=== PATIENT | male | born 1985 | race American Indian/Alaskan Native ===

== ENCOUNTER 2018-09-02 03:36 | Emergency (ER) | payer SELFPAY ==
[2018-09-02 03:47] VITALS: BMI 24.6
--- NOTE | 2018-09-02 04:14 | ED PDOC ---
Arrival/HPI - General Chief Complaint: Psychiatric Evaluation Time Seen by Provider: 09/02/18 03:38 Historian: Patient - History of Present Illness Narrative History of Present Illness (Text): 09/02/18 03:57 A 32 year old male with no significant past medical history presents to the emergency room brought in by ambulance for suicidal and homicide ideation after patient was apparently found outdoors possibly under the influence of drugs and alcohol stating he wanted to kill himself and kill someone else prior to arrival. Patient has an apparent past psychiatric illness as per collateral information obtained. No other medical or psychiatric history at this time. Patient on arrival extremely uncooperative and verbally abusive to the staff. ROS is limited due to patient being uncooperative. Time/Duration: Prior to Arrival Symptom Onset: Gradual Symptom Course: Unchanged Activities at Onset: Light Context: Street Past Medical History - Provider Review Nursing Documentation Reviewed: Yes - Cardiac Hx Cardiac Disorders: Yes Hx Hypertension: Yes - Psychiatric Hx Substance Use: No Family/Social History - Physician Review Nursing Documentation Reviewed: Yes Family/Social History: No Known Family HX Smoking Status: Current Some Days Smoker Hx Alcohol Use: Yes Hx Substance Use: No Allergies/Home Meds Allergies/Adverse Reactions: Allergies No Known Allergies Allergy (Unverified 09/02/18 03:52) Review of Systems - Review of Systems Systems not reviewed;Unavailable: Uncooperative Physical Exam Vital Signs Reviewed: Yes Temperature: Afebrile Blood Pressure: Normal Pulse: Tachycardic Respiratory Rate: Normal Mental Status: Positive for: Alert and Oriented X 3 - Systems Exam Head: Present: Atraumatic, Normocephalic Pupils: Present: PERRL Extroacular Muscles: Present: EOMI Conjunctiva: Present: Normal Respiratory/Chest: Present: Clear to Auscultation, Good Air Exchange. No: Respiratory Distress, Accessory Muscle Use Cardiovascular: Present: Regular Rate and Rhythm, Normal S1, S2. No: Murmurs Psychiatric: Present: Alert, Oriented x 3, Agitated Medical Decision Making ED Course and Treatment: 09/02/18 03:57 Impression: 32 year old male presenting to the emergency room for suicidal and homicidal ideation. Plan: -- EKG -- Labs -- CBC -- Chest X-ray -- Ativan -- Haldol -- Reassess and disposition Progress Notes: 09/02/18 04:10 Patient at one point became increasingly abusive and uncooperative. [employer] was notified and came to ER. Patient was restrained and sedated for his own protection. 09/02/18 05:04 EKG: Ordered, reviewed, and independently interpreted the EKG. Rate : 79 BPM Rhythm : NSR Interpretation : Normal ekg. 09/02/18 05:13 Chest X-ray reviewed by me, shows no acute process. 09/02/18 07:00 Case endorsed to /pending PES evaluation/reassess/final disposition - RAD Interpretation Radiology Orders: 09/02/18 04:00 CHEST PORTABLE [RAD] Stat - Medication Orders Current Medication Orders: Discontinued Medications Haloperidol Lactate (Haldol) 5 mg IM STAT STA; Protocol Stop: 09/02/18 03:54 Lorazepam (Ativan) 2 mg IM ONCE ONE Stop: 09/02/18 03:54 - Scribe Statement The provider has reviewed the documentation as recorded by the Alverto Strange All medical record entries made by the Scribe were at my direction and personally dictated by me. I have reviewed the chart and agree that the record accurately reflects my personal performance of the history, physical exam, medical decision making, and the department course for this patient. I have also personally directed, reviewed, and agree with the discharge instructions and disposition.\ Disposition/Present on Arrival - Present on Arrival Any Indicators Present on Arrival: No History of DVT/PE: No History of Uncontrolled Diabetes: No Urinary Catheter: No History of Decub. Ulcer: No History Surgical Site Infection Following: None - Disposition Have Diagnosis and Disposition been Completed?: No Diagnosis: Psychosis Disposition Time: 07:00 Condition: STABLE Forms: [employer] (Thai)
[2018-09-02 04:54] LABS: ALB/GLOB RATIO 1.3 (1.1-1.8); ALBUMIN 4.5 g/dL (3.0-4.8); ALT/SGPT 22 U/L (7-56); AST/SGOT 51 U/L (17-59); BLOOD UREA NITROGEN 17 mg/dL (7-21); CALCIUM 9.2 mg/dL (8.4-10.5); GFR NON-AFRICAN AMERICAN > 60
[2018-09-02 04:58] LABS: HEMOGLOBIN 13.6 g/dL (14.0-18.0); MEAN CELL VOLUME 83.1 fl (80.0-105.0); MEAN CORPUSCULAR HEMOGLOBIN 28.1 pg (25.0-35.0); MEAN CORPUSCULAR HGB CONC 33.8 g/dl (31.0-37.0); MEAN PLATELET VOLUME 10.1 fl (7.0-11.0); RBC 4.84 10^6/uL (3.5-6.1); RED CELL DISTRIBUTION WIDTH 14.2 % (11.5-14.5)
[2018-09-02 05:04] LABS: OPIATES, UR NEGATIVE (NEGATIVE)
[2018-09-02 06:17] LABS: BARBITURATES, UR NEGATIVE (NEGATIVE); BENZODIAZEPINES, UR NEGATIVE (NEGATIVE); PHENCYCLIDINE, UR POSITIVE (NEGATIVE)
--- NOTE | 2018-09-02 07:14 | ED PDOC ---
Physical Exam Vital Signs Reviewed: Yes Vital Signs Temp Pulse Resp BP Pulse Ox 09/02/18 06:00 98 F 90 18 138/80 96 09/02/18 04:15 97.8 F 98 H 18 142/86 100 Temperature: Afebrile Blood Pressure: Normal Pulse: Regular Respiratory Rate: Normal Appearance: Positive for: Well-Appearing, Non-Toxic, Comfortable Pain Distress: None Mental Status: Positive for: Alert and Oriented X 3 Medical Decision Making ED Course and Treatment: 09/02/18 07:13: Case endorsed to me by Dr. Patton. Pending PES evaluation, reassessment, and final disposition. 09/02/18 09:31: Patient is medically cleared. PES evaluated. Pending [facility] [place]. 09/02/18 17:16 pending [facility] [place] sleeping in nad. intermittanly agitated. - Lab Interpretations Lab Results: Total Bilirubin 0.7 mg/dL (0.2-1.3) 09/02/18 04:26 AST 51 U/L (17-59) 09/02/18 04:26 ALT 22 U/L (7-56) 09/02/18 04:26 Alkaline Phosphatase 66 U/L (38-126) 09/02/18 04:26 Total Protein 7.9 g/dL (5.8-8.3) 09/02/18 04:26 Albumin 4.5 g/dL (3.0-4.8) 09/02/18 04:26 Globulin 3.4 gm/dL 09/02/18 04:26 Albumin/Globulin Ratio 1.3 (1.1-1.8) 09/02/18 04:26 - RAD Interpretation Radiology Orders: 09/02/18 04:00 CHEST PORTABLE [RAD] Stat - Medication Orders Current Medication Orders: Discontinued Medications Haloperidol Lactate (Haldol) 5 mg IM STAT STA; Protocol Stop: 09/02/18 03:54 Last Admin: 09/02/18 03:55 Dose: 5 mg IM Administration Charges Document 09/02/18 03:55 KALEIGH (Rec: 09/02/18 05:06 KALEIGH [id number]) Injection Site MAR Injection Site Left Vastus Lateralis Charges for Administration # of IM Administrations 1 Lorazepam (Ativan) 2 mg IM ONCE ONE Stop: 09/02/18 03:54 Last Admin: 09/02/18 03:55 Dose: 2 mg IM Administration Charges Document 09/02/18 03:55 KALEIGH (Rec: 09/02/18 05:06 RG [id number]) Injection Site MAR Injection Site Left Vastus Lateralis Charges for Administration # of IM Administrations 1 - Scribe Statement The provider has reviewed the documentation as recorded by the Scribe Beti Saldaña Provider Scribe Attestation: All medical record entries made by the Scribe were at my direction and personally dictated by me. I have reviewed the chart and agree that the record accurately reflects my personal performance of the history, physical exam, medical decision making, and the department course for this patient. I have also personally directed, reviewed, and agree with the discharge instructions and disposition. Disposition/Present on Arrival - Present on Arrival Any Indicators Present on Arrival: No History of DVT/PE: No History of Uncontrolled Diabetes: No Urinary Catheter: No History of Decub. Ulcer: No History Surgical Site Infection Following: None - Disposition Diagnosis: Psychosis Patient Problems: Current Active Problems Problem Status Onset Psychosis Acute Condition: STABLE Forms: [employer] (Indian)
[2018-09-02 07:44] LABS: URINE BILIRUBIN NEGATIVE (NEGATIVE); URINE BLOOD NEGATIVE (NEGATIVE); URINE GLUCOSE (UA) NEGATIVE (NEGATIVE); URINE LEUKOCYTE ESTERASE NEGATIVE Leu/uL (NEGATIVE); URINE PROTEIN NEGATIVE mg/dL (<30 mg/dL); URINE UROBILINOGEN 0.2 E.U./dL (<1 E.U./dL)
--- NOTE | 2018-09-02 07:50 | RAD ---
Date of service: 09/02/2018 HISTORY: medical clearance COMPARISON: No prior. TECHNIQUE: 1 view obtained. FINDINGS: LUNGS: No active pulmonary disease. PLEURA: No significant pleural effusion identified, no pneumothorax apparent. CARDIOVASCULAR: No aortic atherosclerotic calcification present. Normal cardiac size. No pulmonary vascular congestion. OSSEOUS STRUCTURES: No significant abnormalities. VISUALIZED UPPER ABDOMEN: Normal. OTHER FINDINGS: None. IMPRESSION: No acute cardiopulmonary disease appreciated.
[2018-09-02 08:08] LABS: URINE APPEARANCE CLEAR (CLEAR); URINE COLOR YELLOW (YELLOW)
--- NOTE | 2018-09-02 11:44 | CARD ---
APPROVED REPORT Date of service: 09/02/2018 EKG Measurement Heart [id number] <Conclusion> Poor data quality, interpretation may be adversely affected Normal sinus rhythm Normal ECG
--- NOTE | 2018-09-02 21:10 | ED PDOC ---
Physical Exam Vital Signs Temp Pulse Resp BP Pulse Ox 09/02/18 19:19 98.6 F 81 18 130/81 98 09/02/18 10:59 98.1 F 63 18 111/68 96 09/02/18 07:37 97.3 F L 71 18 119/65 98 09/02/18 06:00 98 F 90 18 138/80 96 09/02/18 04:15 97.8 F 98 H 18 142/86 100 Medical Decision Making ED Course and Treatment: 09/02/18 19:00 Case endorsed to me, pending [facility] [place] bed placement. - Lab Interpretations Lab Results: Total Bilirubin 0.7 mg/dL (0.2-1.3) 09/02/18 04:26 AST 51 U/L (17-59) 09/02/18 04:26 ALT 22 U/L (7-56) 09/02/18 04:26 Alkaline Phosphatase 66 U/L (38-126) 09/02/18 04:26 Total Protein 7.9 g/dL (5.8-8.3) 09/02/18 04:26 Albumin 4.5 g/dL (3.0-4.8) 09/02/18 04:26 Globulin 3.4 gm/dL 09/02/18 04:26 Albumin/Globulin Ratio 1.3 (1.1-1.8) 09/02/18 04:26 Urine Color Yellow (YELLOW) 09/02/18 03:48 Urine Appearance Clear (CLEAR) 09/02/18 03:48 Urine pH 6.0 (4.7-8.0) 09/02/18 03:48 Ur Specific [place] 1.025 (1.005-1.035) 09/02/18 03:48 Urine Protein Negative mg/dL (<30 mg/dL) 09/02/18 03:48 Urine Glucose (UA) Negative mg/dL (NEGATIVE) 09/02/18 03:48 Urine Ketones Negative mg/dL (NEGATIVE) 09/02/18 03:48 Urine Blood Negative (NEGATIVE) 09/02/18 03:48 Urine Nitrate Negative (NEGATIVE) 09/02/18 03:48 Urine Bilirubin Negative (NEGATIVE) 09/02/18 03:48 Urine Urobilinogen 0.2 E.U./dL (<1 E.U./dL) 09/02/18 03:48 Ur Leukocyte Esterase Negative Ezequiel/uL (NEGATIVE) 09/02/18 03:48 - RAD Interpretation Radiology Orders: 09/02/18 04:00 CHEST PORTABLE [RAD] Stat - Medication Orders Current Medication Orders: Haloperidol Lactate (Haldol) 5 mg IM Q6 PRN; Protocol PRN Reason: Agitation Last Admin: 09/02/18 14:37 Dose: 5 mg IM Administration Charges Document 09/02/18 14:37 UJ (Rec: 09/02/18 14:37 UJP [facility] [id number]) Injection Site MAR Injection Site Right Deltoid Charges for Administration # of IM Administrations 1 Lorazepam (Ativan) 2 mg PO Q6 PRN; Protocol PRN Reason: Agitation Discontinued Medications Haloperidol Lactate (Haldol) 5 mg IM STAT STA; Protocol Stop: 09/02/18 03:54 Last Admin: 09/02/18 03:55 Dose: 5 mg IM Administration Charges Document 09/02/18 03:55 RG (Rec: 09/02/18 05:06 [facility] [place])[id number]) Injection Site MAR Injection Site Left Vastus Lateralis Charges for Administration # of IM Administrations 1 Lorazepam (Ativan) 2 mg IM ONCE ONE Stop: 09/02/18 03:54 Last Admin: 09/02/18 03:55 Dose: 2 mg IM Administration Charges Document 09/02/18 03:55 RG (Rec: 09/02/18 05:06 [id number]) Injection Site MAR Injection Site Left Vastus Lateralis Charges for Administration # of IM Administrations 1 Disposition/Present on Arrival - Present on Arrival Any Indicators Present on Arrival: No History of DVT/PE: No History of Uncontrolled Diabetes: No Urinary Catheter: No History of Decub. Ulcer: No History Surgical Site Infection Following: None - Disposition Diagnosis: Psychosis Patient Problems: Current Active Problems Problem Status Onset Psychosis Acute Condition: STABLE Forms: [employer] (Bermudian)
--- NOTE | 2018-09-03 07:09 | ED PDOC ---
Physical Exam Vital Signs Reviewed: Yes Vital Signs Temp Pulse Resp BP Pulse Ox 09/03/18 05:32 98.0 F 59 L 16 115/72 99 09/03/18 03:59 97.9 F 61 16 120/66 100 09/03/18 01:15 97.7 F 73 19 135/69 96 09/02/18 23:00 65 18 130/69 97 09/02/18 21:44 98.4 F 61 20 133/72 96 09/02/18 19:19 98.6 F 81 18 130/81 98 09/02/18 10:59 98.1 F 63 18 111/68 96 09/02/18 07:37 97.3 F L 71 18 119/65 98 09/02/18 06:00 98 F 90 18 138/80 96 09/02/18 04:15 97.8 F 98 H 18 142/86 100 Temperature: Afebrile Blood Pressure: Normal Pulse: Regular Respiratory Rate: Normal Appearance: Positive for: Well-Appearing, Non-Toxic, Comfortable Pain Distress: None Mental Status: Positive for: Alert and Oriented X 3 Medical Decision Making ED Course and Treatment: 09/03/18 07:09 Case endorsed to me by Dr. Sarabia. Pending [facility] [place] bed placement. 09/03/18 16:07 patient [place] [facility] [place] for psychosis. - Lab Interpretations Lab Results: Total Bilirubin 0.7 mg/dL (0.2-1.3) 09/02/18 04:26 AST 51 U/L (17-59) 09/02/18 04:26 ALT 22 U/L (7-56) 09/02/18 04:26 Alkaline Phosphatase 66 U/L (38-126) 09/02/18 04:26 Total Protein 7.9 g/dL (5.8-8.3) 09/02/18 04:26 Albumin 4.5 g/dL (3.0-4.8) 09/02/18 04:26 Globulin 3.4 gm/dL 09/02/18 04:26 Albumin/Globulin Ratio 1.3 (1.1-1.8) 09/02/18 04:26 Urine Color Yellow (YELLOW) 09/02/18 03:48 Urine Appearance Clear (CLEAR) 09/02/18 03:48 Urine pH 6.0 (4.7-8.0) 09/02/18 03:48 Ur Specific [place] 1.025 (1.005-1.035) 09/02/18 03:48 Urine Protein Negative mg/dL (<30 mg/dL) 09/02/18 03:48 Urine Glucose (UA) Negative mg/dL (NEGATIVE) 09/02/18 03:48 Urine Ketones Negative mg/dL (NEGATIVE) 09/02/18 03:48 Urine Blood Negative (NEGATIVE) 09/02/18 03:48 Urine Nitrate Negative (NEGATIVE) 09/02/18 03:48 Urine Bilirubin Negative (NEGATIVE) 09/02/18 03:48 Urine Urobilinogen 0.2 E.U./dL (<1 E.U./dL) 09/02/18 03:48 Ur Leukocyte Esterase Negative Ezequiel/uL (NEGATIVE) 09/02/18 03:48 - RAD Interpretation Radiology Orders: 09/02/18 04:00 CHEST PORTABLE [RAD] Stat - Medication Orders Current Medication Orders: Haloperidol Lactate (Haldol) 5 mg IM Q6 PRN; Protocol PRN Reason: Agitation Last Admin: 09/03/18 01:10 Dose: 5 mg IM Administration Charges Document 09/03/18 01:10 KV (Rec: 09/03/18 01:10 KV [facility] [id number][id number]) Injection Site MAR Injection Site Right Deltoid Charges for Administration # of IM Administrations 1 Lorazepam (Ativan) 2 mg PO Q6 PRN; Protocol PRN Reason: Agitation Discontinued Medications Haloperidol Lactate (Haldol) 5 mg IM STAT STA; Protocol Stop: 09/02/18 03:54 Last Admin: 09/02/18 03:55 Dose: 5 mg IM Administration Charges Document 09/02/18 03:55 RG (Rec: 09/02/18 05:06 [id number]) Injection Site MAR Injection Site Left Vastus Lateralis Charges for Administration # of IM Administrations 1 Lorazepam (Ativan) 2 mg IM ONCE ONE Stop: 09/02/18 03:54 Last Admin: 09/02/18 03:55 Dose: 2 mg IM Administration Charges Document 09/02/18 03:55 RG (Rec: 09/02/18 05:06 [id number]) Injection Site MAR Injection Site Left Vastus Lateralis Charges for Administration # of IM Administrations 1 - Scribe Statement The provider has reviewed the documentation as recorded by the Scribe Louie Limon All medical record entries made by the Scribe were at my direction and personally dictated by me. I have reviewed the chart and agree that the record accurately reflects my personal performance of the history, physical exam, medical decision making, and the department course for this patient. I have also personally directed, reviewed, and agree with the discharge instructions and disposition. Disposition/Present on Arrival - Present on Arrival Any Indicators Present on Arrival: No History of DVT/PE: No History of Uncontrolled Diabetes: No Urinary Catheter: No History of Decub. Ulcer: No History Surgical Site Infection Following: None - Disposition Have Diagnosis and Disposition been Completed?: Yes Diagnosis: Psychosis Disposition Time: 16:07 Patient Plan: [place] [place] Patient Problems: Current Active Problems Problem Status Onset Psychosis Acute Condition: STABLE Forms: [employer] (Kosovan)
[2018-09-03 09:46] VITALS: RESP 18; TEMP 97.7
[2018-09-03 15:26] VITALS: BP 126/73; PULSE 65; O2SAT 98
== END 2018-09-03 18:01 | disposition short-term general hospital (02) ==
LOC: ED 03:36
DX: F29 Unspecified psychosis not due to a substance or known physiological condition (principal); I10 Essential (primary) hypertension
CPT/HCPCS: 71045; 80053; 81003; 85027; 90791; 93005; 96372; 99285; G0480; J1630; J2060